=== PATIENT | female | born 1950 | race Caucasian/White ===

== ENCOUNTER 2016-09-16 15:45 | Emergency (ER) | payer MEDICARE, MEDICAID ==
[~2016-09-16] VITALS: Ht 157.5 cm; Wt 84.1 kg
[~2016-09-16 15:45] MED LIST: ACET325T51 PO; AMLO5TAB2 PO; CALC500T53 PO; LACT1CAP13 PO; LIPA1CAP PO; LISI10TA PO; LOPE1LIQ88 PO; MAGN400T4 PO; MECL-114 PO; MELA10TA2 PO; NYST1000 PO; OMEP20TA86 PO; ONDA4TAB12 PO; SUCR1ORA PO; ZOLP5TAB6 PO
[2016-09-16 15:53] VITALS: BP 140/92; PULSE 76; RESP 16; O2SAT 99
--- NOTE | 2016-09-16 16:50 | ED.REPORT ---
HPI-Chest Pain 40 and Over Date of Service Sep 16, 2016 ED Provider: Wili Grimes PA-C Christine is a 66-year-old female who presents with chief complaint of left-sided rib pain radiating to her neck and left arm. Patient states the pain started insidiously yesterday. The arm and neck pain resolved by this morning. Patient states she feels fairly good but is concerned because she is aware of possible atypical presentation of a heart attack. Admits a history of hypertension and remote history of occasional smoking. Denies history of hyperlipidemia, cardiac disease, TN, or family history of same. Nursing Notes Stated Complaint: LEFT SHOULDER, NECK, RIB PAIN Chief Complaint: General Complaint Nursing Notes Reviewed: Yes Allergies: Coded Allergies: No Known Allergies (Unverified , 11/30/15) Scheduled Amlodipine (Amlodipine) 5 Mg Tablet 5 MG PO DAILY Lactobacillus Acidophilus (Acidophilus) 1 Each Capsule 2 CAPSULE PO BID Lipase/Protease/Amylase (Creon DR) 6,000 Unit Capsule 1 CAPSULE PO QID Lisinopril (Lisinopril) 10 Mg Tablet 10 MG PO DAILY Nystatin (Nystatin) 100,000 Unit/1 Ml Oral.susp 100,000 UNIT PO QID Omeprazole (Omeprazole) 20 Mg Tablet.dr 20 MG PO DAILY Omeprazole (Omeprazole) 20 Mg Tablet.dr 20 MG PO BID Sucralfate (Sucralfate) 1 Gm/10 Ml Oral.susp 1,000 MG PO ACHS Scheduled PRN Acetaminophen (Acetaminophen) 325 Mg Tablet 650 MG PO Q4H PRN PRN fever or pain Calcium Carbonate (Calcium Carbonate) 200 Mg Tab.chew 200 MG PO QID PRN PRN upset stomach Loperamide HCl (Anti-Diarrheal) 1 Mg/7.5 Ml Liquid 2 MG PO QID PRN PRN For Diarrhea or Loose Stool Magnesium Oxide (Magnesium Oxide) 400 Mg Tablet 400 MG PO DAILY PRN PRN leg cramps Meclizine (Bonine) 25 Mg Tab.chew 25 MG PO BID PRN PRN For Nausea Melatonin (Melatonin) 10 Mg Tablet 10 MG PO HS PRN PRN Insomnia Ondansetron ODT (Ondansetron ODT) 4 Mg Tab.rapdis 4 MG PO TID PRN PRN For Nausea Zolpidem (Zolpidem) 5 Mg Tablet 5 MG PO HS PRN PRN Insomnia General Time Seen by MD: 16:29 Chief Complaint Chest pain Sudden in Onset?: No Risk Factors )( CAD Risk Stratification Hypertension SmokingNo Diabetes mellitus, No Family history, No Hyperlipidemia , No Known CAD Past Medical History Past Medical History 1. Chronic cholecystitis. 2. Retained common bile duct stone. 3. SIRS with sepsis. 4. Acute kidney injury secondary to hypotension, dehydration, sepsis and contrast. 5. Post ERCP hemorrhagic pancreatitis. 6. Morbid obesity, BMI 41.6. 7. Hyperkalemia secondary to acute kidney injury. 8. Metabolic acidosis secondary to acute kidney injury. 9. Hypertension with hypertensive heart disease and hypertensive nephrosclerosis. 10. 11/19/2015:Residual peripancreatic fluid collections following post-ERCP hemorrhagic pancreatitis. 15 days status post percutaneous drainage and continues to drain old bloody-appearing fluid Reports: GERD, Hypertension Past Surgical History 1.Laparoscopic cholecystectomy with intra-op cholangiogram. Attempted but unsuccessful CBD exploration. 2. ERCP with sphincterotomy and balloon sweep. Reports: Tubal ligation Family History noncontributory Smoking History Former Smoker Social History Lives at [facility] Alcohol Use: Denies alcohol use Drug Use: Denies drug use Other Social History: Smokeless tobacco Ambulatory Status Independent Review of Systems General: Denies fever, chills, malaise. Respiratory: Denies dyspnea, cough, shortness of breath, wheezing. Cardiovascular: Denies substernal chest pain, palpitations. Gastrointestinal: Denies vomiting, diarrhea, abdominal pain. Genitourinary: Denies frequency, urgency, dysuria, hematuria. Otherwise as noted in HPI. Physical Exam General: Well developed, well nourished, no acute distress. Head: Atraumatic, normocephalic. Eyes: No scleral icterus or injection. No discharge. Vision grossly intact. ENT: Voice clear, hearing grossly intact. Respiratory: Regular rate and rhythm. Breath sounds present, clear to auscultation and equal bilaterally. Cardiovascular: Regular rate and rhythm, without murmur, gallop or rub. No pedal edema. Gastrointestinal: Abdomen flat and non-tender without guarding or rebound. Bowel sounds normoactive. Skin: Warm and dry. Back: Normal to inspection no midline or CVA tenderness. Musculoskeletal: Tender to palpation left lateral lower ribs Neurological: Grossly nonfocal. No pronator drift Psychological: alert and oriented. Speech appropriate, linear and logical. Behavior appropriate. Initial Vital Signs Vital Signs (First) Date Time Temp Pulse Resp B/P Pulse Ox O2 Delivery O2 Flow Rate FiO2 09/16/16 15:53 36.4 76 16 140/92 99 Room Air Initial VS: Reviewed Interpretation & Diagnostics Lab Results Interpretation Result Diagram: 09/16/16 1656 09/16/16 1656 Test 09/16/16 16:56 White Blood Count 6.8th/mm3 (3.8-10.1) Red Blood Count 4.22mil/mm3 (3.90-5.20) Hemoglobin 11.4g/dL (12.0-15.6) Hematocrit 36.8% (35.0-46.0) Mean Corpuscular Volume 87.2fL (81-100) Mean Corpuscular Hemoglobin 27.0pg (27.0-35.0) Mean Corpuscular Hemoglobin Concent 31.0% (32.0-37.0) Red Cell Distribution Width 16.5% (12.3-15.4) Platelet Count 240bil/L (150-400) Neutrophils (%) (Auto) 58.1% (40-74) Lymphocytes (%) (Auto) 30.3% (14-46) Monocytes (%) (Auto) 9.2% (4-12) Eosinophils (%) (Auto) 1.9% (0-5) Basophils (%) (Auto) 0.4% (0-3) Sodium Level 141mEq/L (134-144) Potassium Level 4.2mEq/L (3.5-5.2) Chloride Level 105mEq/L (97-108) Carbon Dioxide Level 23mmol/L (18-29) Blood Urea Nitrogen 18mg/dL (8-27) Creatinine 0.99mg/dL (0.57-1.00) Estimat Glomerular Filtration Rate 80mL/min (>59) Glucose Level 99mg/dL (60-99) Calcium Level 9.0mg/dL (8.5-10.1) Magnesium Level 2.2mg/dL (1.6-2.6) Total Bilirubin 0.2mg/dL (0.0-1.2) Aspartate Amino Transf (AST/SGOT) 13U/L (0-50) Alanine Aminotransferase (ALT/SGPT) 8U/L (0-32) Alkaline Phosphatase 132U/L (25-165) Troponin T < 0.010ug/L (0.0-0.011) Total Protein 6.9g/dL (6.4-8.4) Albumin 3.6g/dL (3.4-5.0) Re-Eval/Medical Decision Med Decision/Clinical Course Discussed this case with Dr. Sauceda In brief this is an otherwise healthy 66-year-old female who presents for chief complaint of left rib pain radiating to her neck and left arm. Patient states the pain began insidiously last night and that the radiating pain to the neck and left arm has subsided since this morning. She has no risk factors for cardiac disease, and no history of cardiac disease. She states that she actually feels fairly well but is concerned because she is aware of the atypical presentation of TN in women. Considered TN, PE, pneumonia thorax, pleurisy, pneumonia. History and physical, Blood tests, chest x-ray, and EKG are all reassuring. Rib pain is reproducible with palpation. Patient initially stable and safe for discharge to home. She is reassured and comfortable with discharge. Advised ibuprofen, primary care follow-up, provided return precautions. Discharge & Departure Primary Impression: Rib pain on left side Disposition: Home Discharge Condition All VS Reviewed: Yes Condition: Stable Additional Instructions: Evaluation for chest pain in the ED. History and physical is reassuring this is unlikely because by a cardiac event, blood clot, collapsed lung or infection. Blood tests, EKG and chest x-ray were all reassuring. I believe we have ruled out dangerous causes of the pain you have been feeling, and they are stable and safe for discharge to home. The pain appears to be coming from your ribs, though it is unclear why they are sore, it is unlikely to be a dangerous condition. The pain is best treated with 400 mg of ibuprofen (Advil, Motrin) every 6 hours, or 1000 mg of acetaminophen (Tylenol) every 6 hours. These drugs can be taken at the same time for more severe pain. Follow-up with your primary care provider if the condition persists. Return to emergency department for any new or worsening symptoms including difficulty breathing, loss of consciousness, increasing chest pain, abdominal pain. Referrals: Sera Mariano DO (PCP) EDSupervising Provider for APC: Carol Sauceda MD copies to: Sera Mariano Seth PA-C Sep 16, 2016 16:50
[2016-09-16 17:20] LABS: BASOPHILS % (AUTO) 0.4 % (0-3); EOSINOPHILS % (AUTO) 1.9 % (0-5); MONOCYTES % (AUTO) 9.2 % (4-12); Mean Corpuscular Volume 87.2 fL (81-100); NEUTROPHILS % (AUTO) 58.1 % (40-74); Platelet Count 240 bil/L (150-400)
--- NOTE | 2016-09-16 17:39 | DRSVH ---
PROCEDURE: X-RAY CHEST ONE VIEW, PORTABLE ([id number]) INDICATIONS: left side chest pain TECHNIQUE: One view of the chest was acquired. COMPARISON: [facility], CR, XR CHEST 1VW, 05/05/2016, 20:13. FINDINGS: Surgical changes and devices: None. Lungs and pleura: No pleural effusions or pneumothorax. Lungs are clear. Mediastinum: Mediastinal contours appear normal. Heart size is normal. Bones and chest wall: No suspicious bony lesions. Overlying soft tissues appear unremarkable. IMPRESSION: No acute disease Dictated by: Leonides Tobias M.D. on 09/16/2016 at 17:37 Approved by: Leonides Tobias M.D. on 09/16/2016 at 17:37
[2016-09-16 17:46] LABS: TROPONIN T < 0.010 ug/L (0.0-0.011)
[2016-09-16 17:53] LABS: Magnesium 2.2 mg/dL (1.6-2.6)
[2016-09-16 18:16] VITALS: BP 118/73; PULSE 68; RESP 16; O2SAT 100
== END 2016-09-16 18:52 | disposition home or self-care (01) ==
LOC: SED 15:45
DX: R07.81 Pleurodynia (principal); I10 Essential (primary) hypertension; K21.9 Gastro-esophageal reflux disease without esophagitis; Z87.891 Personal history of nicotine dependence